=== PATIENT | female | born 1960 | race Caucasian/White ===

== ENCOUNTER 2016-06-19 07:47 | Emergency (ER) | payer OTHER ==
[~2016-06-19] VITALS: Ht 154.9 cm; Wt 75.8 kg
[~2016-06-19 07:47] MED LIST: "\\\"BP MED\\\"" PO; ANTIVERT25 MG PO; COZAAR100 MG PO; DIOVAN160 MG PO; EFFEXOR25 MG PO; KLOR-CON M2020 MEQ PO; LOSARTAN POTASS50 MG PO; MOTRIN800 MG PO; NOHOMEMEDS; NORCO 7.5/321 TABLET PO; PEPCID20 MG PO; PREVACID PO; PRILOSEC10 MG PO; PRILOSEC20 MG PO; PSEUDOEPHEDRINE30 MG PO; REGLAN10 MG PO; REGLAN5 MG PO; SERTRALINE HCL100 MG PO; TAMIFLU75 MG PO; ULTRAM50 MG PO; WELLBUTRIN SR150 MG PO; ZOCOR20 MG PO; ZOLOFT PO; [UNRECOGNIZED DRUG - REMARK] PO
[2016-06-19 08:18] LABS: HEMATOCRIT 42.5 % (36.0-46.0); MCH 29.4 PG (29.0-34.0); MCHC 34.1 G/DL (30.0-36.0); MEAN PLAT.VOLUME 8.3 uM^3 (9.5-12.4); PLATELET COUNT 277 K/uL (156-360); RBC DIS.WIDTH-CV 13.3 % (11.8-14.6); RBC DIS.WIDTH-SD 40.5 % (39-53); RED BLOOD COUNT 4.94 M/uL (3.80-5.20)
[2016-06-19 08:28] LABS: CHLORIDE 106 mEq/L (99-109); POTASSIUM 3.8 mEq/L (3.7-5.4); SODIUM 142 mEq/L (136-147)
[2016-06-19 08:30] LABS: GLUCOSE 146 mg/dL (70-99)
[2016-06-19 08:31] LABS: ANION GAP 14 MEQ/L (2-14)
[2016-06-19 08:32] LABS: TOTAL BILIRUBIN 0.6 mg/dL (0.0-1.0)
[2016-06-19 08:34] LABS: ALKALINE PHOSPHATASE 93 IU/L (3-129); GFR ESTIMATE (CALCULATED) > 59 mL/min/
[2016-06-19 08:35] LABS: UREA NITROGEN (BUN) 21 mg/dL (9-23)
[2016-06-19 08:37] LABS: LIPASE 33 U/L (1.0-51.0)
[2016-06-19 08:43] LABS: QUANTITATIVE HCG 4.2 MIU/ML
[2016-06-19 09:24] LABS: ADD MIUA? YES; BILIRUBIN NEGATIVE; BLOOD NEGATIVE; COLOR YELLOW ((YELLOW)); GLUCOSE (STRIP) NEGATIVE; KETONES NEGATIVE; LEUKOCYTES MODERATE; NITRITE NEGATIVE; PROTEIN (STRIP) TRACE; SPECIFIC GRAVITY 1.027 (1.000-1.030)
[2016-06-19 09:35] LABS: BACTERIA NONE SEEN; CASTS NONE SEEN /LPF; MUCUS NONE SEEN; PATHOLOGICAL CAST NONE SEEN; SMALL ROUND CELL PRESENT; UCUL ADDED? NO; YEAST-LIKE CELL PRESENT
[2016-06-19 09:46] LABS: EPITHELIAL CELLS RARE; RED BLOOD CELLS NONE SEEN /HPF (0-5); WHITE BLOOD CELLS 0-5 /HPF (0-5)
[2016-06-19 09:47] LABS: CRYSTALS NONE SEEN
[2016-06-19] MEDS ORDERED: ZOFRAN ODT8 MG PO (10:45)
[2016-06-19 11:17] VITALS: BP 117/76
== END 2016-06-19 11:19 | disposition home or self-care (01) ==
LOC: EME 07:47
DX: R11.2 Nausea with vomiting, unspecified (principal); R10.9 Unspecified abdominal pain; R51 Headache; J45.909 Unspecified asthma, uncomplicated; Z87.442 Personal history of urinary calculi
CPT/HCPCS: 80053; 81003; 83690; 84702; 85027; 99281; 99284; J1885; J2405; J7030

== ENCOUNTER 2017-05-11 16:09 | Emergency (ER) | payer OTHER ==
[~2017-05-11] VITALS: Ht 157.5 cm; Wt 76.7 kg
[~2017-05-11 16:09] MED LIST changes: +ZOFRAN ODT8 MG PO
[2017-05-11] MEDS ORDERED: FLEXERIL10 MG PO (18:08)
[2017-05-11] MEDS ORDERED: NORCO 5/3251 TABLET PO (18:08)
[2017-05-11 18:20] VITALS: BP 128/80
== END 2017-05-11 18:20 | disposition home or self-care (01) ==
LOC: EME 16:09
DX: S40.022A Contusion of left upper arm, initial encounter (principal); I10 Essential (primary) hypertension; E11.9 Type 2 diabetes mellitus without complications; W23.0XXA Caught, crushed, jammed, or pinched between moving objects, initial encounter; W23.1XXA Caught, crushed, jammed, or pinched between stationary objects, initial encounter; Y92.510 Bank as the place of occurrence of the external cause; Z88.5 Allergy status to narcotic agent; Z88.2 Allergy status to sulfonamides; Z88.1 Allergy status to other antibiotic agents
CPT/HCPCS: 73030; 73060; 73080; 99281; 99284

== ENCOUNTER 2017-08-16 06:14 | Emergency (ER) | payer OTHER ==
[~2017-08-16] VITALS: Ht 154.9 cm; Wt 77.6 kg
[~2017-08-16 06:14] MED LIST changes: +FLEXERIL10 MG PO; +NORCO 5/3251 TABLET PO
[2017-08-16 07:07] LABS: HEMATOCRIT 39.6 % (36.0-46.0); HEMOGLOBIN 13.6 G/DL (11.9-15.5); MCH 29.8 PG (29.0-34.0); MCHC 34.3 G/DL (30.0-36.0); MCV 86.8 FL (83-99); PLATELET COUNT 186 K/uL (156-360); RBC DIS.WIDTH-CV 12.6 % (11.8-14.6); RBC DIS.WIDTH-SD 39.8 % (39-53); RED BLOOD COUNT 4.56 M/uL (3.80-5.20); WHITE BLOOD COUNT 8.1 K/uL (4.1-10.2)
[2017-08-16 07:40] LABS: TROP-I INTERPRETATION NEGATIVE; TROPONIN-I 0.03 ng/mL (0.0-0.30)
[2017-08-16 07:41] LABS: CHLORIDE 103 MEQ/L (99-109); CREATININE 0.7 MG/DL (0.6-1.3); GFR ESTIMATE (CALCULATED) > 59 mL/min/; GLUCOSE 117 mg/dL (70-99); POTASSIUM 3.8 MEQ/L (3.7-5.4); SODIUM 138 MEQ/L (136-147); UREA NITROGEN (BUN) 11 mg/dL (9-23)
[2017-08-16 08:30] VITALS: BP 116/65
[2017-08-16] MEDS ORDERED: PREDNISONE50 MG PO (08:30)
== END 2017-08-16 08:46 | disposition home or self-care (01) ==
LOC: EME 06:14
PROVIDERS: Emergency Medicine
DX: J45.909 Unspecified asthma, uncomplicated (principal); R50.9 Fever, unspecified; Z90.710 Acquired absence of both cervix and uterus; Z90.49 Acquired absence of other specified parts of digestive tract
CPT/HCPCS: 71046; 80048; 83880; 84484; 85027; 93005; 94640; 99281; 99284

== ENCOUNTER 2017-11-12 19:18 | Emergency (ER) | payer OTHER ==
[~2017-11-12] VITALS: Ht 157.5 cm; Wt 78.4 kg
[~2017-11-12 19:18] MED LIST changes: +PREDNISONE50 MG PO
[2017-11-12] MEDS ORDERED: ZOFRAN ODT8 MG PO (21:56)
[2017-11-12] MEDS ORDERED: FIORICET 50-301 EAC1 PO (21:56)
[2017-11-12 22:31] VITALS: BP 134/83
== END 2017-11-12 22:36 | disposition home or self-care (01) ==
LOC: EME 19:18
DX: S06.0X0A Concussion without loss of consciousness, initial encounter (principal); S01.01XA Laceration without foreign body of scalp, initial encounter; W22.8XXA Striking against or struck by other objects, initial encounter; Z23 Encounter for immunization; Z90.49 Acquired absence of other specified parts of digestive tract; Z90.710 Acquired absence of both cervix and uterus
CPT/HCPCS: 70450; 99281; 99284